=== PATIENT | female | born 1985 ===

== ENCOUNTER → 2020-06-23 | Outpatient (CLI) | payer OTHER | LOC: SJCVCIMAG 07:46 | PROVIDERS: ATTEND Internal Medicine | DX: R55 Syncope and collapse (principal); E78.5 Hyperlipidemia, unspecified; Z79.899 Other long term (current) drug therapy ==

== ENCOUNTER → 2020-10-06 | Outpatient (CLI) | payer OTHER ==
[2020-10-06 12:44] VITALS: BP 111/64
--- NOTE | 2020-10-13 09:57 | LINQ ---
[facility] [place] [address] LINQ PROCEDURE REPORT Name: ASHTYN SERRA Room #: REG JO ANN Saunders#: [id number] Admission: 10/06/20 Attend Phys: Curry Lopez Discharge: Date of : 81 Report #: [id number] THIS REPORT FOR: cc: Gene Levi MD, John H. MD Lammoglia, Francisco J. MD ~ APPROVED REPORT Study performed: 10/06/2020 12:30:34 Patient Status: Out-Patient Room #: Event Personnel: Curry Lopez MD The patient is a 34 year-old female with a history of Palpitations. Implanted Devices: [employer] Reveal LINQ LNQ11 Serial # [id number] Use By 2021-07-14 Procedure The patient underwent informed consent. We discussed the details of the procedure including the risks, which include, but not limited to bleeding, infection, vascular damage, cardiac perforation, and pneumothorax. She understood these risks and was willing to proceed. As such, she was brought to the EP/Cardiac Catheterization laboratory in a fasting and sedated state and prepped and draped in a The left chest was prepped and draped in usual sterile manner. Utilizing lidocaine a wheal was raised and subsequent extension of the local anesthetic was noted. A small incision was made with an 11 blade. Using blunt dissection a tract was formed. Utilizing the standard deployment tool the device was then placed. Closure was obtained with a set of 2 simple interrupted Vicryl stitches that brought the subcutaneous tissue together to occlude the tract. The skin was closed with 3-0 Vicryl in a subcuticular mode. Dermabond Steri-Strips 4 x 4 OpSite were utilized. Patient tolerated procedure well Conclusion 1. Successful insertion of a [employer] IN Q loop recorder [address] [address] [employer] PROCEDURE REPORT Name: ASHTYN SERRA Room #: REG [facility].#: [id number] Admission: 10/06/20 Attend Phys: Curry Restrepo Discharge: Date of : 81 Report #: [id number] Recommendations 1. Routine post insertion protocol <ELECTRONICALLY SIGNED> By: Curry Lopez MD 10/13/2056 5 5 Curry Lopez MD /INF
--- NOTE | 2020-10-14 11:20 | O ---
[facility] [place] [address] OPERATIVE REPORT Name: ASHTYN SERRA Room #: REG Alin Rudolph.#: [id number] Admission: 10/06/20 Attend Phys: Curry Lopez Discharge: Date of : 81 Report #: [id number] THIS REPORT FOR: cc: Gene Levi MD, John H. MD Lammoglia,Curry Marino MD ~ DATE OF SERVICE: 10/06/2020 PROCEDURE PERFORMED: Implantable loop recorder. INDICATIONS: A 34-year-old female patient with dizziness, lightheadedness, syncope, and palpitations. DESCRIPTION OF PROCEDURE: The patient was brought to the cardiac catheterization laboratory prep and hold. The left chest was prepped and draped in the usual sterile manner. Dictation Ends Here. <ELECTRONICALLY SIGNED> By: Curry Lopez MD 10/14/20 1120 [id number] Curry Lopez MD /nt
== END | disposition home or self-care (01) ==
LOC: CATH 08:00
PROVIDERS: ATTEND Internal Medicine
DX: R00.2 Palpitations (principal)

== ENCOUNTER → 2021-07-27 | Outpatient (CLI) | payer OTHER ==
[~2021-07-27] VITALS: Ht 160 cm; Wt 53.5 kg
[~2021-07-27] MED LIST: CONCERTA27 MG PO; FLUOXETINE HCL60 MG PO; MIRALAX17 GM PO
[2021-07-27 07:18] VITALS: BP 103/36
[2021-07-27 07:19] LABS: ABSOLUTE NEUTROPHILS 2.7 thou/uL (1.4-8.2); BASOPHILS 1.6 % (0.0-2.0); EOSINOPHILS 5.8 % (0.0-3.0); HEMOGLOBIN 12.8 gm/dL (12.0-15.0); LYMPHOCYTES 25.8 % (24.0-44.0); MCH 32.7 pg (26.0-34.0); MCHC 33.6 g/dL (28.0-37.0); MCV 97.5 fL (80.0-100.0); MONOCYTES 8.1 % (1.0-8.0); PLATELET COUNT 320 thou/uL (150-400); POLYS 58.7 % (36.0-66.0); RDW 13.1 % (10.5-14.5); WBC 4.5 thou/uL (4.0-11.0)
[2021-07-27 07:24] LABS: CALCIUM 8.7 mg/dL (8.5-10.1); CREATININE 0.7 mg/dL (0.6-1.0); POTASSIUM 3.3 mmol/L (3.5-5.1)
[2021-07-27 07:31] LABS: TOTAL BILIRUBIN 0.4 mg/dL (0.2-1.0)
[2021-07-27 07:45] LABS: APTT 26.7 Seconds (24.5-32.8); INR 0.99; PROTIME 10.8 Seconds (10.5-12.1)
--- NOTE | 2021-08-08 16:28 | P ---
[facility] [place] [address] PROCEDURE REPORT Name: ASHTYN SERRA [id number] Admission: 07/27/21 Attend Phys: Venkat Melara MD Discharge: Date of : 81 Report #: [id number] THIS REPORT FOR: cc: Gene Levi MD, John H. MD Couchonnal,Venkat Vidal MD ~ DATE OF SERVICE: 07/27/2021 PROCEDURES PERFORMED: 1. SVT ablation, CPT code 27238. 2. Left atrial pacing and recording, CPT code 38591. 3. Program stimulation pacing after IV drug infusion, CPT code 65337. 4. 3D mapping, CPT code 00291. PREOPERATIVE DIAGNOSIS: Supraventricular tachycardia. 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 INDICATION: The patient is a 35-year-old with recurrent SVT, here for ablation. DESCRIPTION OF PROCEDURE: The patient underwent informed consent. She was then brought to the EP laboratory in a fasting and unsedated state. She was placed under anesthesia by the Anesthesiology Service. I then obtained access to the bilateral femoral veins. In the right femoral vein, I placed an 8 and two 6-Hebrew short sheaths. In the left femoral vein, I placed a 7-Hebrew short sheath using the modified Seldinger technique. Under fluoroscopy, I placed three quadripolar catheters at the HRA, His and RV positions and a decapolar catheter easily in the coronary sinus for left atrial pacing and recording. At baseline, the patient was in sinus rhythm with a sinus cycle length of 730 milliseconds, SC interval 150 milliseconds, QRS duration 80 milliseconds, QT interval 380 milliseconds, AH interval 105 milliseconds, HV interval 40 milliseconds. Next, atrial burst pacing was performed and AV block was noted at 450 milliseconds. AV yann ERP was noted at 360 milliseconds at a [address] cycle length. At baseline, there was no evidence of VA conduction. Next, Isoproterenol infusion was started at 2 mcg per minute. AV block was noted at 300 milliseconds. Atrial ERP was noted at 190 milliseconds at [address] cycle length. VA conduction was now midline and decremental. VA ERP was noted at 230 milliseconds and at 3:[address] cycle length. With a single atrial extrastimuli, the patient would have double, triple and quadruple AV yann echoes that suggested AVNRT. Isoproterenol was initiated at 3 mcg per minute. With atrial burst pacing or single atrial extrastimuli, the patient would go into SVT with a tachycardia cycle length of 270 milliseconds, septal VA time of 35 milliseconds. This would consistently terminate with an A. I was able to induce this arrhythmia 3-4 times and they would last approximately 10 seconds. I tried going down on the isoproterenol and this resulted in her being less inducible. Based on these [facility] [address] [place] [address] PROCEDURE REPORT Name: ASHTYN SERRA Room #: REG [facility]#: [id number] Admission: 07/27/21 Attend Phys: Venkat Melara MD Discharge: Date of : 81 Report #: [id number] findings, it appeared that she had typical AV yann reentrant tachycardia and therefore she was prepped for an ablation. 3D MAPPING AND ABLATION: Next, I placed a 4 mm ablation catheter via an SR0 sheath into the right atrium, created a detailed 3D voltage map and 3D geometry of the right atrium with specific emphasis of the His bundle region and the slow pathway region. I performed a total of 8 ablation lesions, several of which had nice slow junctionals. Post-ablation, isoproterenol was turned back at mcg 3 mcg per minute. AV block was noted at 280 milliseconds. AV yann ERP was noted at 270 milliseconds at a [address] cycle length. There was no further VA conduction. I then turned the isoproterenol down to 1 mcg per minute and then tested off of Isuprel. Post-ablation, she had no more inducible SVT, nor did she have a single AV yann echo. As such, the procedure was concluded and she was in sinus rhythm with a sinus cycle length of 700 milliseconds, SC interval 130 milliseconds, QRS duration 80 milliseconds, QT interval 380 milliseconds. CONCLUSION: 1. Successful ablation of typical AV yann reentrant tachycardia. 2. Normal SA yann function. 3. Normal AV yann function. 4. Normal His-Purkinje function. 5. No other inducible arrhythmias on or off isoproterenol. <ELECTRONICALLY SIGNED> By: Venkat Melara MD 08/08/21 1628 [id number] Venkat Melara MD /nt
== END | disposition home or self-care (01) ==
LOC: CATH 06:35
PROVIDERS: ATTEND Internal Medicine Cardiovascular Disease
DX: I47.1 Supraventricular tachycardia (principal); R55 Syncope and collapse; Z98.890 Other specified postprocedural states; Z79.899 Other long term (current) drug therapy; Z87.891 Personal history of nicotine dependence
CPT/HCPCS: 62110; 62900; 70005